=== PATIENT | male | born 1945 | race Caucasian/White ===

== ENCOUNTER 2023-11-16 12:53 | Inpatient (IN) | payer MEDICARE, BC ==
[~2023-11-16 12:53] MED LIST: Iopamidol-370 76% 500 ML MDV (1 ML CHARGE) ONE
[2023-11-16 13:59] LABS: #Eosinphils 0.2 thou/uL (0.0-0.7); #Monocytes 0.5 thou/uL (0.11-0.59); #Neutrophils 4.9 thou/uL (1.40-6.50); %Basophils 0.6 % (0.0-1.0); %Eosinophils 2.2 % (0.0-10.0); %Monocytes 6.5 % (0.0-10.0); %Neutrophils 69.3 % (42.0-75.0); Hematocrit 44.5 % (42.0-52.0); Hemoglobin 14.8 g/dL (14.0-18.0); Mean Corpuscular HGB CONC 33.3 g/dL (32.0-36.0); Mean Corpuscular Hemoglobin 31.4 pg (27.0-31.0); Mean Corpuscular Volume 94.3 fl (78.0-98.0); Mean Platelet Volume 10.4 fL (7.4-10.4); Platelet Count 176 10x3/uL (130-400); RBC Distribution Width 15.5 % (11.5-14.5); Red Blood Cell (RBC) Count 4.72 mill/uL (4.70-6.10); White Blood Cell (WBC) Count 7.1 10x3/uL (4.8-10.8)
[2023-11-16 14:31] LABS: Troponin I Less than 0.010 ng/mL (< 0.028)
[2023-11-16 14:34] LABS: ALT (SGPT) 27 U/L (8-55); AST (SGOT) 33 U/L (5-34); Albumin 4.1 g/dL (3.4-4.8); Alkaline Phosphatase 78 U/L (40-110); Anion Gap 16 mmol/L (10-20); BUN (Urea Nitrogen) 11 mg/dL (8.4-25.7); Bilirubin, Total 1.1 mg/dL (0.2-1.2); Calc. Creatinine Clearance 0 mL/min (70-130); Calcium 9.7 mg/dL (7.8-10.44); Carbon Dioxide 27 mmol/L (23-31); Chloride 96 mmol/L (98-107); Estimated GFR 74; Globulin 3.2 g/dL (2.4-3.5); Glucose 352 mg/dL (83-110); Lipase 24 U/L (8-78); Potassium 3.8 mmol/L (3.5-5.1); Protein, Total 7.3 g/dL (5.8-8.1); Sodium 135 mmol/L (136-145)
[2023-11-16 14:36] LABS: SARS-CoV-2 NAA Rapid Test Not Detected (NotDetected)
[2023-11-16] MEDS ORDERED: cefTRIAXone (ROCEPHIN) 2 GM VIAL ONE (16:32)
[2023-11-16] MEDS ORDERED: Sodium Chloride 0.9% 100 ML ONE (16:33)
[2023-11-16] MEDS ORDERED: Acetaminophen 500 MG TAB ONE (17:36)
[2023-11-16] MEDS ORDERED: Azithromycin 500 MG VIAL ONE (17:36)
[2023-11-16] MEDS ORDERED: Ondansetron PF 4 MG/2 ML Vial ONE (18:17)
[2023-11-16] MEDS ORDERED: Loperamide HCl 2 MG CAP PO PRN (18:41)
[2023-11-16] MEDS ORDERED: Ondansetron ODT 4 MG TAB PO PRN (18:41)
[2023-11-16] MEDS ORDERED: HYDROcodone/Acetaminophen 7.5/325 mg Tablet PO PRN (18:41)
[2023-11-16] MEDS ORDERED: Senokot S 8.6-50 MG TAB PO PRN (18:41)
[2023-11-16] MEDS ORDERED: Dextrose 5% in Water 1,000 ML IV PRN (18:46)
[2023-11-16] MEDS ORDERED: Glucagon 1 MG/ML KIT IM PRN (18:46)
[2023-11-16] MEDS ORDERED: Dextrose 50% Abboject 50 ML SYRINGE SLOW IVP PRN (18:46)
[2023-11-16 20:13] LABS: Troponin I 0.011 ng/mL (< 0.028)
[2023-11-16] MEDS: Insulin Glargine 30 UNITS/0.3 ML VIAL SC SCH (22:13)
[2023-11-16] MEDS: Atorvastatin Calcium 10 MG TAB PO SCH (22:14)
[2023-11-16] MEDS: Apixaban 5 MG TAB PO SCH (22:14)
[2023-11-16] MEDS: Famotidine/PF 20 mg/2ml Vial SLOW IVP SCH (22:14)
[2023-11-16] MEDS: Sodium Chloride 0.9% 1,000 ML IV SCH (22:14)
[2023-11-16 23:15] VITALS: BMI 41.8
[2023-11-17 04:14] LABS: #Basophils 0.1 thou/uL (0.0-0.2); #Eosinphils 0.2 thou/uL (0.0-0.7); #Monocytes 0.6 thou/uL (0.11-0.59); #Neutrophils 4.6 thou/uL (1.40-6.50); %Basophils 0.7 % (0.0-1.0); %Eosinophils 2.3 % (0.0-10.0); %Neutrophils 63.4 % (42.0-75.0); Hematocrit 41.3 % (42.0-52.0); Hemoglobin 13.3 g/dL (14.0-18.0); Mean Corpuscular HGB CONC 32.2 g/dL (32.0-36.0); Mean Corpuscular Hemoglobin 31.1 pg (27.0-31.0); Mean Corpuscular Volume 96.7 fl (78.0-98.0); Platelet Count 175 10x3/uL (130-400); RBC Distribution Width 15.7 % (11.5-14.5); Red Blood Cell (RBC) Count 4.27 mill/uL (4.70-6.10); White Blood Cell (WBC) Count 7.3 10x3/uL (4.8-10.8)
[2023-11-17 04:24] LABS: Hemoglobin A1c 9.5 % (4.0-6.0)
[2023-11-17 04:40] LABS: ALT (SGPT) 22 U/L (8-55); AST (SGOT) 26 U/L (5-34); Albumin 3.4 g/dL (3.4-4.8); Alkaline Phosphatase 61 U/L (40-110); Anion Gap 15 mmol/L (10-20); BUN (Urea Nitrogen) 8 mg/dL (8.4-25.7); Bilirubin, Total 0.9 mg/dL (0.2-1.2); Calc. Creatinine Clearance 128 mL/min (70-130); Calcium 8.5 mg/dL (7.8-10.44); Carbon Dioxide 23 mmol/L (23-31); Chloride 101 mmol/L (98-107); Estimated GFR 88; Globulin 2.9 g/dL (2.4-3.5); Glucose 209 mg/dL (83-110); Protein, Total 6.3 g/dL (5.8-8.1); Sodium 135 mmol/L (136-145)
[2023-11-17 04:57] LABS: Free T4 (Free Thyroxine) 1.1 ng/dL (0.70-1.48)
[2023-11-17] MEDS: HumaLOG 300 UNITS/3 ML VIAL SC PRN ×4 (06:10→20:10)
[2023-11-17] MEDS: Levothyroxine Sodium 75 MCG TAB PO SCH (06:12)
[2023-11-17] MEDS: Sodium Chloride 0.9% 1,000 ML IV SCH ×2 (06:18→14:23)
[2023-11-17] MEDS: Venlafaxine HCl XR 75 MG CAP PO SCH (09:18)
[2023-11-17] MEDS: Finasteride 5 MG TAB PO SCH (09:18)
[2023-11-17] MEDS: Tamsulosin HCl 0.4 MG CAP PO SCH (09:18)
[2023-11-17] MEDS: Furosemide 20 MG TAB PO SCH (09:18)
[2023-11-17] MEDS: Apixaban 5 MG TAB PO SCH ×2 (09:18→19:59)
[2023-11-17] MEDS: Pantoprazole 40 MG VIAL IVP SCH (09:18)
[2023-11-17] MEDS: Dronedarone HCl 400 MG TAB PO SCH ×2 (09:18→16:26)
[2023-11-17] MEDS: Famotidine/PF 20 mg/2ml Vial SLOW IVP SCH ×2 (09:18→19:59)
[2023-11-17] MEDS: Insulin Glargine 30 UNITS/0.3 ML VIAL SC SCH (19:59)
[2023-11-17] MEDS: Atorvastatin Calcium 10 MG TAB PO SCH (19:59)
[2023-11-17] MEDS: HYDROcodone/Acetaminophen 10/325 mg Tablet PO PRN ×2 (20:00→23:46)
[2023-11-18] MEDS: Levothyroxine Sodium 75 MCG TAB PO SCH (05:05)
[2023-11-18] MEDS: HYDROcodone/Acetaminophen 10/325 mg Tablet PO PRN (05:06)
[2023-11-18 05:25] LABS: #Basophils 0.1 thou/uL (0.0-0.2); #Eosinphils 0.3 thou/uL (0.0-0.7); #Monocytes 0.6 thou/uL (0.11-0.59); #Neutrophils 3.2 thou/uL (1.40-6.50); %Eosinophils 4.1 % (0.0-10.0); %Lymphocytes 34.9 % (21.0-51.0); %Monocytes 9.2 % (0.0-10.0); %Neutrophils 50.2 % (42.0-75.0); Hematocrit 41.5 % (42.0-52.0); Hemoglobin 13.4 g/dL (14.0-18.0); Mean Corpuscular HGB CONC 32.3 g/dL (32.0-36.0); Mean Corpuscular Hemoglobin 31.9 pg (27.0-31.0); Mean Corpuscular Volume 98.8 fl (78.0-98.0); Mean Platelet Volume 10.1 fL (7.4-10.4); Platelet Count 177 10x3/uL (130-400); RBC Distribution Width 15.9 % (11.5-14.5); White Blood Cell (WBC) Count 6.3 10x3/uL (4.8-10.8)
[2023-11-18 05:48] LABS: Anion Gap 14 mmol/L (10-20); BUN (Urea Nitrogen) 9 mg/dL (8.4-25.7); Calc. Creatinine Clearance 93 mL/min (70-130); Calcium 8.5 mg/dL (7.8-10.44); Carbon Dioxide 26 mmol/L (23-31); Chloride 101 mmol/L (98-107); Estimated GFR 62; Glucose 198 mg/dL (83-110); Potassium 3.6 mmol/L (3.5-5.1); Sodium 137 mmol/L (136-145)
[2023-11-18] MEDS: HumaLOG 300 UNITS/3 ML VIAL SC PRN ×3 (06:00→17:34)
[2023-11-18] MEDS: Apixaban 5 MG TAB PO SCH ×2 (09:02→20:18)
[2023-11-18] MEDS: Venlafaxine HCl XR 75 MG CAP PO SCH (09:02)
[2023-11-18] MEDS: Famotidine/PF 20 mg/2ml Vial SLOW IVP SCH ×2 (09:02→20:17)
[2023-11-18] MEDS: Dronedarone HCl 400 MG TAB PO SCH ×2 (09:02→17:34)
[2023-11-18] MEDS: Furosemide 20 MG TAB PO SCH (09:03)
[2023-11-18] MEDS: Pantoprazole 40 MG VIAL IVP SCH (09:03)
[2023-11-18] MEDS: Finasteride 5 MG TAB PO SCH (09:03)
[2023-11-18] MEDS: Tamsulosin HCl 0.4 MG CAP PO SCH (09:03)
[2023-11-18] MEDS: Insulin Glargine 30 UNITS/0.3 ML VIAL SC SCH (20:18)
[2023-11-18] MEDS: Atorvastatin Calcium 10 MG TAB PO SCH (20:18)
[2023-11-19] MEDS: HYDROcodone/Acetaminophen 10/325 mg Tablet PO PRN ×2 (02:03→21:20)
[2023-11-19 05:18] LABS: #Eosinphils 0.2 thou/uL (0.0-0.7); #Monocytes 0.6 thou/uL (0.11-0.59); #Neutrophils 4.4 thou/uL (1.40-6.50); %Basophils 0.6 % (0.0-1.0); %Lymphocytes 25.1 % (21.0-51.0); %Monocytes 8.2 % (0.0-10.0); %Neutrophils 62.8 % (42.0-75.0); Hematocrit 41.7 % (42.0-52.0); Hemoglobin 13.5 g/dL (14.0-18.0); Mean Corpuscular HGB CONC 32.4 g/dL (32.0-36.0); Mean Corpuscular Hemoglobin 31.5 pg (27.0-31.0); Mean Corpuscular Volume 97.4 fl (78.0-98.0); Platelet Count 158 10x3/uL (130-400); RBC Distribution Width 15.5 % (11.5-14.5); Red Blood Cell (RBC) Count 4.28 mill/uL (4.70-6.10)
[2023-11-19 05:45] LABS: Anion Gap 13 mmol/L (10-20); BUN (Urea Nitrogen) 8 mg/dL (8.4-25.7); Calc. Creatinine Clearance 108 mL/min (70-130); Calcium 8.4 mg/dL (7.8-10.44); Carbon Dioxide 25 mmol/L (23-31); Chloride 100 mmol/L (98-107); Estimated GFR 74; Glucose 194 mg/dL (83-110); Potassium 3.6 mmol/L (3.5-5.1); Sodium 134 mmol/L (136-145)
[2023-11-19] MEDS: Levothyroxine Sodium 75 MCG TAB PO SCH (06:23)
[2023-11-19] MEDS: HumaLOG 300 UNITS/3 ML VIAL SC PRN ×3 (06:23→16:08)
[2023-11-19] MEDS: Apixaban 5 MG TAB PO SCH ×2 (08:39→20:18)
[2023-11-19] MEDS: Dronedarone HCl 400 MG TAB PO SCH ×2 (08:39→15:53)
[2023-11-19] MEDS: Tamsulosin HCl 0.4 MG CAP PO SCH (08:40)
[2023-11-19] MEDS: Pantoprazole 40 MG VIAL IVP SCH (08:40)
[2023-11-19] MEDS: Furosemide 20 MG TAB PO SCH (08:40)
[2023-11-19] MEDS: Finasteride 5 MG TAB PO SCH (08:40)
[2023-11-19] MEDS: Venlafaxine HCl XR 75 MG CAP PO SCH (08:40)
[2023-11-19] MEDS: Famotidine/PF 20 mg/2ml Vial SLOW IVP SCH ×2 (08:40→20:18)
[2023-11-19] MEDS: Acetaminophen 325 MG TAB PO PRN ×2 (08:53→21:19)
[2023-11-19] MEDS ORDERED: FLU VACC QS2023(65UP)/MF59C/PF 60 MCG/0.5 ML SYRINGE IM ONE (09:00)
[2023-11-19] MEDS: Atorvastatin Calcium 10 MG TAB PO SCH (20:18)
[2023-11-19] MEDS: Insulin Glargine 30 UNITS/0.3 ML VIAL SC SCH (20:19)
[2023-11-20] MEDS: HumaLOG 300 UNITS/3 ML VIAL SC PRN ×3 (02:13→14:05)
[2023-11-20 05:13] LABS: #Eosinphils 0.2 thou/uL (0.0-0.7); #Monocytes 0.5 thou/uL (0.11-0.59); #Neutrophils 2.9 thou/uL (1.40-6.50); %Basophils 0.5 % (0.0-1.0); %Lymphocytes 34.5 % (21.0-51.0); %Monocytes 8.8 % (0.0-10.0); %Neutrophils 51.7 % (42.0-75.0); Mean Corpuscular HGB CONC 32.5 g/dL (32.0-36.0); Mean Corpuscular Hemoglobin 31.6 pg (27.0-31.0); Mean Corpuscular Volume 97.1 fl (78.0-98.0); Mean Platelet Volume 10.5 fL (7.4-10.4); Platelet Count 153 10x3/uL (130-400); RBC Distribution Width 15.3 % (11.5-14.5); Red Blood Cell (RBC) Count 4.12 mill/uL (4.70-6.10); White Blood Cell (WBC) Count 5.6 10x3/uL (4.8-10.8)
[2023-11-20 05:41] LABS: Anion Gap 13 mmol/L (10-20); BUN (Urea Nitrogen) 9 mg/dL (8.4-25.7); Calc. Creatinine Clearance 99 mL/min (70-130); Calcium 8.6 mg/dL (7.8-10.44); Carbon Dioxide 26 mmol/L (23-31); Chloride 98 mmol/L (98-107); Estimated GFR 67; Glucose 209 mg/dL (83-110); Potassium 3.3 mmol/L (3.5-5.1); Sodium 134 mmol/L (136-145)
[2023-11-20] MEDS: Levothyroxine Sodium 75 MCG TAB PO SCH (06:16)
[2023-11-20 08:28] VITALS: BP 161/70
[2023-11-20] MEDS: Acetaminophen 325 MG TAB PO PRN (08:30)
[2023-11-20] MEDS: Dronedarone HCl 400 MG TAB PO SCH (08:30)
[2023-11-20] MEDS: Venlafaxine HCl XR 75 MG CAP PO SCH (08:32)
[2023-11-20] MEDS: Pantoprazole 40 MG VIAL IVP SCH (08:32)
[2023-11-20] MEDS: Tamsulosin HCl 0.4 MG CAP PO SCH (08:32)
[2023-11-20] MEDS: Apixaban 5 MG TAB PO SCH (08:32)
[2023-11-20] MEDS: Famotidine/PF 20 mg/2ml Vial SLOW IVP SCH (08:32)
[2023-11-20] MEDS: Finasteride 5 MG TAB PO SCH (08:32)
[2023-11-20] MEDS: Furosemide 20 MG TAB PO SCH (08:32)
[2023-11-20 12:44] VITALS: TEMP 98.4
== END 2023-11-20 15:00 | DRG 391 ==
LOC: ERS 12:53 → T4-A 17:31 → 2NO 19:56
PROVIDERS: ADMIT Family Medicine; ATTEND Family Medicine
DX: K52.9 Noninfective gastroenteritis and colitis, unspecified (principal); J18.9 Pneumonia, unspecified organism; J98.11 Atelectasis; R07.89 Other chest pain; E11.43 Type 2 diabetes mellitus with diabetic autonomic (poly)neuropathy; I48.91 Unspecified atrial fibrillation; I50.9 Heart failure, unspecified; G47.33 Obstructive sleep apnea (adult) (pediatric); R91.8 Other nonspecific abnormal finding of lung field; E03.9 Hypothyroidism, unspecified; K21.9 Gastro-esophageal reflux disease without esophagitis; N40.0 Benign prostatic hyperplasia without lower urinary tract symptoms; F41.8 Other specified anxiety disorders; I71.40 Abdominal aortic aneurysm, without rupture, unspecified; Z79.4 Long term (current) use of insulin; Z88.2 Allergy status to sulfonamides; Z11.52 Encounter for screening for COVID-19; K31.84 Gastroparesis
CPT/HCPCS: 36415; 36416; 71045; 71275; 74177; 80048; 80053; 83036; 83690; 83880; 84439; 84443; 84481; 84484; 85025; 93005; 93306; 96361; 96365; 96367; 96375; C9113; J0456; J0696; J1815; J2405; J3490; J7050; Q9967; S0028

== ENCOUNTER 2023-11-25 11:47 | Emergency (ER) | payer MEDICARE, BC ==
[2023-11-25 12:25] LABS: #Eosinphils 0.1 thou/uL (0.0-0.7); #Monocytes 0.4 thou/uL (0.11-0.59); #Neutrophils 6.8 thou/uL (1.40-6.50); %Basophils 0.4 % (0.0-1.0); %Eosinophils 1.5 % (0.0-10.0); %Lymphocytes 19.8 % (21.0-51.0); %Monocytes 4.7 % (0.0-10.0); %Neutrophils 73.1 % (42.0-75.0); Hemoglobin 15.4 g/dL (14.0-18.0); Mean Corpuscular HGB CONC 33.5 g/dL (32.0-36.0); Mean Corpuscular Hemoglobin 31.3 pg (27.0-31.0); Mean Corpuscular Volume 93.5 fl (78.0-98.0); Mean Platelet Volume 10.3 fL (7.4-10.4); Platelet Count 197 10x3/uL (130-400); RBC Distribution Width 14.8 % (11.5-14.5); Red Blood Cell (RBC) Count 4.92 mill/uL (4.70-6.10); White Blood Cell (WBC) Count 9.3 10x3/uL (4.8-10.8)
[2023-11-25 12:52] LABS: Troponin I 0.011 ng/mL (< 0.028)
[2023-11-25 13:03] LABS: ALT (SGPT) 32 U/L (8-55); AST (SGOT) 32 U/L (5-34); Albumin 3.9 g/dL (3.4-4.8); Alkaline Phosphatase 75 U/L (40-110); Anion Gap 13 mmol/L (10-20); BUN (Urea Nitrogen) 9 mg/dL (8.4-25.7); Bilirubin, Total 1.2 mg/dL (0.2-1.2); Calc. Creatinine Clearance 0 mL/min (70-130); Calcium 9.2 mg/dL (7.8-10.44); Carbon Dioxide 26 mmol/L (23-31); Chloride 98 mmol/L (98-107); Estimated GFR 87; Glucose 256 mg/dL (83-110); Lipase 20 U/L (8-78); Potassium 4.2 mmol/L (3.5-5.1); Protein, Total 6.9 g/dL (5.8-8.1); Sodium 133 mmol/L (136-145)
[2023-11-25 13:48] LABS: SARS-CoV-2 NAA Rapid Test Not Detected (NotDetected)
[2023-11-25 15:26] LABS: Bacteria/HPF None Seen HPF (None Seen); Bilirubin Negative (Negative); Blood, Urine Negative (Negative); CAUTI Indications for Culture Dysuria,urgency,freq; Clarity Clear (Clear); Glucose, Urine (Dipstick) 150 mg/dL (Negative); Ketone, Urine Negative (Negative); Leukocyte Negative Leu/uL (Negative); Nitrite Negative (Negative); Protein, Urine (Dipstick) Negative (Neg-Trace); RBC/HPF None Seen HPF (0-3); Specific Gravity, Urine 1.007 (1.002-1.036); Squamous Epithelial None Seen HPF (0-3); Urobilinogen Normal mg/dL (Less than 2); WBC/HPF 0-3 HPF (0-3); pH, Urine 6.5 (5.0-9.0)
[2023-11-25 15:35] LABS: Urine Culture Reflex No No
== END 2023-11-25 21:12 ==
LOC: ERS 11:47
DX: R10.13 Epigastric pain (principal); R11.0 Nausea; Z20.822 Contact with and (suspected) exposure to COVID-19
CPT/HCPCS: 0240U; 71045; 80053; 81001; 83690; 83880; 84484; 85025; 93005